=== PATIENT | male | born 1975 | race Two or more races ===

== ENCOUNTER 2020-09-04 15:28 | Emergency (ER) | payer SELFPAY ==
[~2020-09-04] VITALS: Ht 170.2 cm; Wt 95.3 kg
[2020-09-04 16:23] VITALS: BP 144/83
[2020-09-04] MEDS ORDERED: TETANUS-DIPTH-ACEL PERTUSSIS 0.5ML SYR Tdap IM ONE (17:45)
[2020-09-04] MEDS ORDERED: IBUPROFEN 800 MG TAB PO ONE (17:45)
[2020-09-04] MEDS ORDERED: LIDOCAINE 1% HCL (LOCAL ANESTH.) INJ 20ML MDV IJ ONE (19:15)
[2020-09-04] MEDS ORDERED: BACITRACIN TOP OINT 1 UD PKG TOP ONE (20:30)
== END 2020-09-04 20:40 | disposition home or self-care (01) ==
LOC: ER 15:28
DX: S61.412A Laceration without foreign body of left hand, initial encounter (principal); E66.9 Obesity, unspecified; Z68.32 Body mass index [BMI] 32.0-32.9, adult; W18.09XA Striking against other object with subsequent fall, initial encounter; Y93.89 Activity, other specified; Y92.89 Other specified places as the place of occurrence of the external cause; Y99.8 Other external cause status
CPT/HCPCS: 12002; 73130; 90471; 90715; 99283; J2001